=== PATIENT | female | born 1970 | race Caucasian/White ===

== ENCOUNTER 2020-02-20 11:09 | Emergency (ER) | payer MEDICAID, OTHER ==
[~2020-02-20] VITALS: Ht 165.1 cm; Wt 109.1 kg
[~2020-02-20 11:09] MED LIST: NO HOME MEDS
[2020-02-20 11:11] VITALS: BP 127/50
[2020-02-20] MEDS ORDERED: IBUP-1984 PO (13:26)
[2020-02-20] MEDS ORDERED: ibuprofen tablet 400 MG TABLET PO ONE (13:30)
== END 2020-02-20 13:56 | disposition home or self-care (01) ==
LOC: ER 11:10
DX: S93.491A Sprain of other ligament of right ankle, initial encounter (principal); S86.001A Unspecified injury of right Achilles tendon, initial encounter; Z79.899 Other long term (current) drug therapy; X50.1XXA Overexertion from prolonged static or awkward postures, initial encounter; Y93.89 Activity, other specified; Y92.89 Other specified places as the place of occurrence of the external cause; Y99.8 Other external cause status
CPT/HCPCS: 73610; 99284